=== PATIENT | female | born 1945 ===

== ENCOUNTER 2020-11-11 12:45 | Inpatient (IN) | payer OTHER ==
[~2020-11-11] VITALS: Ht 162.6 cm; Wt 63.5 kg
== END 2020-11-15 16:48 | disposition home or self-care (01) | DRG 743 ==
LOC: EDSEX 11-13 09:50 → OB/GYN 11-13 09:50 → O/R 11-13 09:50 → OB/GYN 11-13 12:45 → O/R 11-15 14:06 → OB/GYN 11-15 14:13
PROVIDERS: ADMIT Specialist; ATTEND Specialist
PROC: 0UT2FZZ Resection of Bilateral Ovaries, Via Natural or Artificial Opening With Percutaneous Endoscopic Assistance (ICD-10-PCS; 2020-11-13)
PROC: 0UT7FZZ Resection of Bilateral Fallopian Tubes, Via Natural or Artificial Opening With Percutaneous Endoscopic Assistance (ICD-10-PCS; 2020-11-13)
PROC: 0UT9FZZ Resection of Uterus, Via Natural or Artificial Opening With Percutaneous Endoscopic Assistance (ICD-10-PCS; principal; 2020-11-13 15:15)
DX: N83.292 Other ovarian cyst, left side (principal); N83.202 Unspecified ovarian cyst, left side; D25.2 Subserosal leiomyoma of uterus; N80.0 Endometriosis of uterus; N72 Inflammatory disease of cervix uteri; N83.11 Corpus luteum cyst of right ovary; N94.89 Other specified conditions associated with female genital organs and menstrual cycle

== ENCOUNTER 2024-06-19 02:11 | Inpatient (IN) | payer OTHER ==
[~2024-06-19] VITALS: Ht 160 cm; Wt 60.8 kg
[2024-06-19] MEDS ORDERED: METOPROLOL SUCC25 MG PO (02:21)
[2024-06-19] MEDS ORDERED: SIMVASTATIN5 MG (02:21)
--- NOTE | 2024-06-19 02:22 | NUR ---
PTE ALERTA Y OPRIENTADA X3 REFIERE DOLOR ABDOMINAL DEL LADO DERECHO Y NAUSEAS. SE MIDEN S/V Y S EUBICA.
[2024-06-19] MEDS ORDERED: KETOROLAC TROMETHAMINE 60 MG VIAL IM STA (04:21)
[2024-06-19] MEDS ORDERED: 0.9 % SODIUM CHLORIDE 1,000 ML IV ONE (04:30)
--- NOTE | 2024-06-19 04:37 | NUR ---
SE EDUCA A PTE SOBRE TX MEDICO, SE MARILU MUESTRAS DE LABORATORIO UTILIZANDO MEDIDAS ASEPTICAS. SE COLOCA H/ KAREN DE EDEMA. SE ADMINISTRNA MEDICAMENTOS LOS CUALES PTE TOLERA. SE NOTIFICA ESTUDIO DE CT Y SONGRAMA PENDIENTES A REALIZAR.
[2024-06-19 05:06] LABS: HEMATOCRIT 29.9 % (36.0-45.00); HEMOGLOBIN 9.8 g/dL (12.0-15.00); MEAN CELL VOLUME 87.5 fL (80.00-100.00); MEAN CORPUSCULAR HEMOGLOBIN 28.8 pg (27.00-32.0); PLATELET COUNT 318 K/uL (150-450); RED BLOOD COUNT 3.41 M/uL (4.00-6.00); RED CELL DISTRIBUTION WIDTH 14.8 % (11.5-14.5)
[2024-06-19 05:23] LABS: INR 1.12; PARTIAL THROMBOPLASTIN TIME 34.5 SECONDS (22.0-34.0); PROTHROMBIN TIME 12.1 SECONDS (9.0-11.5)
[2024-06-19 05:28] LABS: ALBUMIN 2.9 gm/dL (3.4-5.0); BILIRUBIN TOTAL 0.71 mg/dL (0.3-1.2); BILIRUBIN,CONJUGATED 0.24 mg/dL (0.0-0.2); BILIRUBIN,UNCONJUGATED 0.47 mg/dL (0.0-0.6); CALCIUM 9.1 mg/dL (8.5-10.1); CREATININE SERUM 0.62 mg/dL (0.55-1.02); GFR 93.34; GLOBULINA 4.5 G/DL (2.4-3.5); POTASSIUM 4.07 mEq/L (3.5-5.1); TOTAL PROTEIN 7.4 gm/dL (6.4-8.2)
[2024-06-19 07:08] LABS: PH,URINE 6.5 (5.0-8.0); URINE APPEARANCE Clear; URINE BILIRRUBIN Negative (NEGATIVE); URINE BLOOD Small; URINE COLOR Yellow; URINE GLUCOSE Negative (NEGATIVE); URINE KETONE 15 (NEGATIVE); URINE LEUKOCYTE Negative; URINE NITRATE Negative; URINE UROBILINOGEN 0.2 E.U./dl
[2024-06-19 07:12] LABS: URINE BACTERIA 133.3 uL (0.0-1933); URINE EPITHELIAL CELLS 12.5 uL (0.0-38.8); URINE RBC 90.7 uL (0.0-20.8); URINE WBC 18.8 uL (0.0-23.2)
[2024-06-19 07:23] LABS: URINE CAST 0.44 uL (0.0-1.40); URINE PROTEIN 100 (NEGATIVE)
[2024-06-19] MEDS ORDERED: PIPERACILLIN/TAZOBACTAM SODIUM 3.375 GM in 0.9 % SODIUM CHLORIDE 100 ML IV SCH (12:00)
[2024-06-19] MEDS ORDERED: METOPROLOL TARTRATE 25 MG TABLET PO SCH (12:02)
[2024-06-19] MEDS ORDERED: 0.9 % SODIUM CHLORIDE 1,000 ML IV SCH (12:15)
[2024-06-19] MEDS ORDERED: ONDANSETRON HCL 4 MG in 0.9 % SODIUM CHLORIDE 50 ML IV PRN (12:15)
[2024-06-19] MEDS ORDERED: MORPHINE SULFATE 4 MG/ML VIAL IV PRN (12:15)
[2024-06-19] MEDS ORDERED: MORPHINE SULFATE 4 MG/ML CARTRIDGE IV PRN (18:00)
[2024-06-19] MEDS ORDERED: MORPHINE SULFATE 4 MG/ML VIAL IV ONE ×2 (21:35→22:35)
[2024-06-20 04:00] VITALS: BP 106/68; O2SAT 95
[2024-06-20 06:50] LABS: HEMATOCRIT 28.4 % (36.0-45.00); HEMOGLOBIN 9.6 g/dL (12.0-15.00); MEAN CELL VOLUME 86.7 fL (80.00-100.00); MEAN CORPUSCULAR HEMOGLOBIN 29.2 pg (27.00-32.0); MEAN CORPUSCULAR HGB CONC 33.7 g/dl (32.0-36.0); PLATELET COUNT 332 K/uL (150-450); RED BLOOD COUNT 3.27 M/uL (4.00-6.00); RED CELL DISTRIBUTION WIDTH 14.9 % (11.5-14.5)
[2024-06-20] MEDS ORDERED: KETOROLAC TROMETHAMINE 30 MG VIAL IV SCH (17:00)
[2024-06-20 18:16] VITALS: BP 137/63; O2SAT 95
[2024-06-21 00:10] VITALS: BP 109/67; O2SAT 96
[2024-06-21 08:37] VITALS: BP 126/68; O2SAT 98
[2024-06-21] MEDS ORDERED: ONDANSETRON HCL 2 MG/ML VIAL IV ONE (14:30)
[2024-06-21 16:00] VITALS: BP 140/65; O2SAT 95
[2024-06-22 00:40] VITALS: BP 121/72; O2SAT 97
[2024-06-22 07:58] VITALS: BP 133/79; O2SAT 97
== END 2024-06-22 11:40 | disposition home or self-care (01) | DRG 399 ==
LOC: ER 02:11 → SURG 12:10 → SEC-K 12:10 → SURG 21:34
PROVIDERS: General Practice; Surgery; ADMIT Internal Medicine; ATTEND Internal Medicine
PROC: BW40ZZZ Ultrasonography of Abdomen (ICD-10-PCS; 2024-06-19)
PROC: BW21YZZ Computerized Tomography (CT Scan) of Abdomen and Pelvis using Other Contrast (ICD-10-PCS; 2024-06-19)
PROC: 0DTJ0ZZ Resection of Appendix, Open Approach (ICD-10-PCS; principal; 2024-06-19 21:00)
DX: K35.32 Acute appendicitis with perforation, localized peritonitis, and gangrene, without abscess (principal); N20.0 Calculus of kidney